=== PATIENT | female | born 1965 | race Caucasian/White ===

== ENCOUNTER → 2017-07-14 | Day surgery (SDC) | payer BC ==
[2017-07-12 16:20] LABS: ANION GAP 10.3 mmol/L (8-16); BLOOD UREA NITROGEN 9 mg/dL (7-26); BUN/CREATININE RATIO 10 (6-25); CALCIUM 9.4 mg/dL (8.4-10.2); CARBON DIOXIDE 29 mmol/L (22-29); CHLORIDE 105 mmol/L (98-107); CREATININE, SERUM 0.88 mg/dL (0.57-1.11); EST GLOMERULAR FILTRATION RATE > 60 ML/MIN (60-); GLUCOSE 89 mg/dL (74-118); POTASSIUM 4.3 mmol/L (3.5-5.1); SODIUM 140 mmol/L (136-145)
[~2017-07-14] MED LIST: ATENOLOL50 MG PO; BACITRACIN 50,000 UNIT VIAL ONE; BUPIVACAINE 0.5%/EPI 30 ML SDV INJ ONE; CEFAZOLIN SOD 2 GM/D5W 50ML 50 ML IV ONE; DEXAMETHASONE SOD PHOS INJ 4 MG/ML VIAL ONE; FENTANYL CITRATE/PF 100MCG/2 ML INJ ONE; FUROSEMIDE40 MG PO; HEPARIN 500 UNITS/5ML MDV INJ ONE; KETOROLAC TROMETHAMINE 30 MG/ML VIAL ONE; LIDOCAINE HCL 2% LOCAL INJ 5 ML SDV VIAL INJ ONE; MIDAZOLAM HCL 2 MG/2 ML VIAL ONE; ONDANSETRON HCL INJ 2 MG/ML VIAL ONE; PROPOFOL IV EMULSION 10 MG/ML 20 ML VIAL ONE; SEVOFLURANE INHAL SOLN 250 ML PEN BTL ONE; SPIRONOLACTONE25 MG PO
--- NOTE | 2017-07-15 01:04 | Operative Report ---
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 OPERATIONS/PROCEDURES PERFORMED: Patient underwent: 1. Irrigation and debridement of a right chronic infected prepatellar bursa. 2. Excision of a large area of scar tissue the prepatellar bursa. [employer]: None. ANESTHESIA: General endotracheal intubation anesthesia. IV FLUIDS: Per the anesthesia record. BRIEF DESCRIPTION OF PATIENT'S OPERATIVE PROCEDURE: Ms. Lama was taken to the operating room and placed in the supine position on the operating room table. Following induction of general anesthesia as well as endotracheal intubation, the patient's right lower extremity was examined under anesthesia. She was found to have a scar overlying the lateral aspect of her tibial tubercle. This correlated with an area of focal swelling and a history of chronic intermittent drainage from the infected prepatellar bursa. The patient's lower extremity was prepped and draped in standard surgical fashion. An incision was created overlying the tibial tubercle. This incision was carried through skin only. Blunt dissection was used to deepen the incision, and the patellar tendon was identified proximally. The dissection was then carried distally and through the region of the chronic infection. She was found to have copious scar formation and an area of walled off scar tissue correlating to the region of her abscess. Careful dissection was carried along the plane of the patellar tendon freeing this area from the tendon itself. There was some investment of the scar tissue into the patellar tendon. Similarly, the subcutaneous tissues were dissected free, and approximately a 2 cm rounded area of scar tissue was elevated from the wound. This also revealed a pocket with dry infectious material. This was cultured and the soft tissue lesion was sent to pathology for culture also. The soft tissues were then thoroughly debrided using both sharp and blunt dissection. The wound was copiously irrigated in a pulse lavage fashion. The wound was then closed in a multilayer fashion. Sterile dressings were applied, and the patient was then awakened and taken to the postanesthesia care unit in stable condition. Job#: [id number]
== END | disposition home or self-care (01) ==
LOC: OR 10:47
PROVIDERS: ATTEND Specialist
DX: M71.161 Other infective bursitis, right knee (principal); I10 Essential (primary) hypertension; Z01.810 Encounter for preprocedural cardiovascular examination; Z88.6 Allergy status to analgesic agent
CPT/HCPCS: 27340; 27599; 36415; 80048; 87071; 87075; 87186; 87205; 88305; 93005; J1100; J1885; J2001; J2250; J2405

== ENCOUNTER → 2021-02-06 | Day surgery (SDC) | payer BC ==
[2021-02-05 09:46] LABS: INR 0.9; PROTHROMBIN TIME 12.9 seconds (11.9-14.5)
[~2021-02-06] MED LIST changes: -BACITRACIN 50,000 UNIT VIAL ONE; -BUPIVACAINE 0.5%/EPI 30 ML SDV INJ ONE; +BUPIVACAINE HCL 0.5% INJ 30 ML VIAL INJ ONE; -CEFAZOLIN SOD 2 GM/D5W 50ML 50 ML IV ONE; +DEXAMETHASONE SOD PHOS INJ 4 MG/ML SDV ONE; -DEXAMETHASONE SOD PHOS INJ 4 MG/ML VIAL ONE; -HEPARIN 500 UNITS/5ML MDV INJ ONE; +HYDROCODON-ACE1 EA12 PO; -KETOROLAC TROMETHAMINE 30 MG/ML VIAL ONE; +METOPROLOL SUCC50 MG PO; -ONDANSETRON HCL INJ 2 MG/ML VIAL ONE; +ONDANSETRON HCL INJ 2MG/ML 2ML 2 MG/ML VIAL ONE; +POVIDONE IODINE 0.05% 0.05 % ML PO ONE
[2021-02-06 12:01] VITALS: BP 151/84
== END | disposition home or self-care (01) ==
LOC: OR 07:32
PROVIDERS: ATTEND Neurological Surgery
DX: G56.01 Carpal tunnel syndrome, right upper limb (principal); K21.9 Gastro-esophageal reflux disease without esophagitis; K76.0 Fatty (change of) liver, not elsewhere classified; G47.33 Obstructive sleep apnea (adult) (pediatric); I10 Essential (primary) hypertension; Z88.6 Allergy status to analgesic agent; Z88.8 Allergy status to other drugs, medicaments and biological substances; Z01.810 Encounter for preprocedural cardiovascular examination; Z01.812 Encounter for preprocedural laboratory examination; Z20.822 Contact with and (suspected) exposure to COVID-19; Z79.899 Other long term (current) drug therapy; Z68.41 Body mass index [BMI] 40.0-44.9, adult
CPT/HCPCS: 36415; 64721; 85610; 85730; 93005; J0690; J1100; J2001; J2250; J2405; J2704; J3010; U0002

== ENCOUNTER → 2021-02-27 | Day surgery (SDC) | payer BC ==
[2021-02-20 13:27] LABS: ANION GAP 14.5 mmol/L (8-16); CALCIUM 9.1 mg/dL (8.4-10.2); CREATININE, SERUM 0.82 mg/dL (0.57-1.11); POTASSIUM 4.5 mmol/L (3.5-5.1)
[~2021-02-27] MED LIST changes: +HYDROCODONE/APAP 10MG-325MG TAB ONE; +SODIUM CHLORIDE 0.9% 50ML 50 ML ONE
[2021-02-27 09:05] VITALS: BP 123/69
== END | disposition home or self-care (01) ==
LOC: OR 06:23
PROVIDERS: ATTEND Podiatrist Foot & Ankle Surgery
DX: M20.21 Hallux rigidus, right foot (principal); M20.11 Hallux valgus (acquired), right foot; M20.41 Other hammer toe(s) (acquired), right foot; M77.51 Other enthesopathy of right foot and ankle; G47.33 Obstructive sleep apnea (adult) (pediatric); I10 Essential (primary) hypertension; Z88.6 Allergy status to analgesic agent; Z91.041 Radiographic dye allergy status; Z01.812 Encounter for preprocedural laboratory examination; Z01.818 Encounter for other preprocedural examination; Z20.822 Contact with and (suspected) exposure to COVID-19; Z79.899 Other long term (current) drug therapy
CPT/HCPCS: 28108 ×2; 28285 ×2; 28291; 36415; 71046; 80048; C1713; C1776; J0690; J1100; J2001; J2250; J2405; J2704; J3010; U0002